=== PATIENT | female | born 1995 ===

== ENCOUNTER 2024-02-07 11:41 | Inpatient (IN) | payer BC ==
[2024-02-07] MEDS ORDERED: Sodium Chloride 0.9% 2.5 ML Syringe FLUSH PRN (12:12)
[2024-02-07] MEDS ORDERED: Methylergonovine 0.2 MG/1 ML Amp IM PRN (12:12)
[2024-02-07] MEDS ORDERED: Carboprost Tromethamine 250 MCG/1 mL Vial IM PRN (12:12)
[2024-02-07] MEDS ORDERED: Tranexamic Acid IN NACL,ISO-OS 1,000 MG in Premix Bag 1 BAG IV PRN (12:12)
[2024-02-07] MEDS ORDERED: Sodium Chloride 0.9% 20 ML SDV IV PRN (12:12)
[2024-02-07] MEDS ORDERED: Sodium Chloride 0.9% 10 ML Syringe FLUSH PRN (12:12)
[2024-02-07] MEDS ORDERED: Water For Irrigation,Sterile 1,000 ML Container IRR PRN (12:12)
[2024-02-07] MEDS ORDERED: Lidocaine 1% 50 ML MDV INJECT PRN (12:12)
[2024-02-07] MEDS ORDERED: Misoprostol 200 MCG Tab PO PRN (12:12)
[2024-02-07] MEDS ORDERED: Oxytocin/0.9 % Sodium Chloride 30 UNIT/500 ML BAG IV SCH (12:15)
[2024-02-07] MEDS: Lactated Ringers 1,000 ML IV SCH (12:48)
[2024-02-07] MEDS: Ampicillin 2 GM in Sodium Chloride 0.9% 100 ML IV ONE (12:49)
[2024-02-07 13:22] LABS: HEMATOCRIT 36.5 % (37.0-47.0); HEMOGLOBIN 12.8 g/dL (12.0-16.0); MEAN CORPUSCULAR HEMOGLOBIN 31.2 pg (28.0-32.0); MEAN CORPUSCULAR HGB CONC 35.1 g/dL (32.0-36.0); MEAN PLATELET VOLUME 13.4 fL (9.4-12.3); PLATELET COUNT,PLT 150 K/uL (150-400); WHITE BLOOD CELL COUNT,WBC 9.13 K/uL (3.9-11.3)
[2024-02-07] MEDS ORDERED: ePHEDrine 50 MG/ML SDV IVPUSH PRN ×2 (13:57)
[2024-02-07] MEDS ORDERED: dexmedeTOMIDine HCl 200 MCG/2 ML SDV EPIDUR SCH (14:00)
[2024-02-07] MEDS ORDERED: Terbutaline 1 MG/ML SDV SUBCUT PRN (15:49)
[2024-02-07] MEDS: Oxytocin/0.9 % Sodium Chloride 30 UNIT/500 ML BAG IV SCH (16:04)
[2024-02-07] MEDS: Ampicillin 1 GM in Sodium Chloride 0.9% 50 ML IV SCH (16:57)
[2024-02-07] MEDS: Butorphanol 2 MG/ML SDV IVPUSH PRN (18:25)
[2024-02-07] MEDS: Ropivacaine HCl/PF 400 MG in Premix Bag 1 BAG EPIDUR SCH (19:39)
[2024-02-07] MEDS: Ondansetron 4 MG/2 ML SDV IVPUSH PRN (19:56)
[2024-02-07] MEDS: Phenylephrine HCl In 0.9% NaCl 1 MG/10 ML Syringe IVPUSH PRN (21:37)
[2024-02-08] MEDS ORDERED: Bupivacaine 0.25% 10 ML SDV ONE (00:16)
[2024-02-08] MEDS ORDERED: fentaNYL 100 MCG/2 ML SDV ONE (00:16)
[2024-02-08] MEDS ORDERED: Ibuprofen 800 MG Tab PO PRN (04:29)
[2024-02-08] MEDS ORDERED: oxyCODONE 5 MG Tab PO PRN (04:29)
[2024-02-08 04:45] LABS: PH,UMBILICAL ARTERIAL 7.194 (7.18-7.38); PH,UMBILICAL VENOUS 7.291 (7.25-7.45)
[2024-02-08] MEDS: Benzocaine/Menthol 20%-0.5% Spray 78 GM Cannister TOP PRN (06:15)
[2024-02-08] MEDS: Witch Hazel Medicated Pads 40/Jar TOP PRN (06:16)
[2024-02-08] MEDS: Lanolin 100% Cream 7 GM Tube TOP PRN (06:16)
[2024-02-08] MEDS: Acetaminophen 500 MG Tab PO PRN (18:41)
[2024-02-09 05:45] LABS: HEMATOCRIT 28.5 % (37.0-47.0); HEMOGLOBIN 9.6 g/dL (12.0-16.0)
[2024-02-09] MEDS: Docusate Sodium 100 MG Cap PO PRN (09:17)
== END 2024-02-09 13:32 | disposition home or self-care (01) | DRG 560 ==
LOC: MW.OBCHECK 11:41 → MW.OB 11:42 → MW.OBCHECK 12:13 → OBSVTOIN 02-08 04:29 → MW.OB 02-08 08:46
PROVIDERS: ADMIT Obstetrics & Gynecology; ATTEND Obstetrics & Gynecology
PROC: 10E0XZZ Delivery of Products of Conception, External Approach (ICD-10-PCS; principal; 2024-02-08)
PROC: 10907ZC Drainage of Amniotic Fluid, Therapeutic from Products of Conception, Via Natural or Artificial Opening (ICD-10-PCS; 2024-02-08)
PROC: 0KQM0ZZ Repair Perineum Muscle, Open Approach (ICD-10-PCS; 2024-02-08)
PROC: 3E0R3BZ Introduction of Anesthetic Agent into Spinal Canal, Percutaneous Approach (ICD-10-PCS; 2024-02-08)
PROC: 00HU33Z Insertion of Infusion Device into Spinal Canal, Percutaneous Approach (ICD-10-PCS; 2024-02-08)
DX: O48.0 Post-term pregnancy (principal); Z37.0 Single live birth; O99.824 Streptococcus B carrier state complicating childbirth; O70.1 Second degree perineal laceration during delivery; O77.0 Labor and delivery complicated by meconium in amniotic fluid; Z3A.41 41 weeks gestation of pregnancy
CPT/HCPCS: 36415; 51702; 59025; 59409; 82803; 85014; 85018; 85027; 86592; 86850; 86900; 86901; A9270-GY; J0290; J0595; J2371; J2405; J2590; J2795; J3010; J3490; J7120